=== PATIENT | female | born 2005 | race African-American/Black ===

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

== ENCOUNTER 2023-01-12 06:19 | Emergency (ER) | payer OTHER ==
[2023-01-12] MEDS ORDERED: Ketorolac Tromethamine 30 MG/ML VIAL ONE (06:42)
== END 2023-01-12 08:20 | disposition home or self-care (01) ==
LOC: ERS 06:19
DX: S20.212A Contusion of left front wall of thorax, initial encounter (principal); X58.XXXA Exposure to other specified factors, initial encounter
CPT/HCPCS: 71045; 96372; J1885

== ENCOUNTER 2023-01-28 02:04 | Emergency (ER) | payer OTHER ==
[2023-01-28 02:45] LABS: Bilirubin Negative (Negative); Blood, Urine 1+ (Negative); CAUTI Indications for Culture Dysuria,urgency,freq; Clarity Turbid (Clear); Glucose, Urine (Dipstick) Normal (Negative); Ketone, Urine Negative (Negative); Leukocyte 500 Leu/uL (Negative); Nitrite Negative (Negative); Protein, Urine (Dipstick) 20 mg/dL (Neg-Trace); RBC/HPF 21-50 HPF (0-3); Specific Gravity, Urine 1.027 (1.002-1.036); WBC/HPF Greater than 50 HPF (0-3)
[2023-01-28 02:49] LABS: Bacteria/HPF 1+ HPF (None Seen)
[2023-01-28 02:50] LABS: Urine Culture Reflex Yes Yes
== END 2023-01-28 03:07 | disposition home or self-care (01) ==
LOC: ERS 02:04
DX: N39.0 Urinary tract infection, site not specified (principal)
CPT/HCPCS: 81001; 87086; 99283